=== PATIENT | male | born 1980 | race Caucasian/White ===

== ENCOUNTER 2021-06-04 18:05 | Emergency (ER) | payer OTHER ==
[2021-06-04 18:14] VITALS: BP 122/80; PULSE 65; TEMP 97.9; BMI 26.4
[2021-06-04] MEDS ORDERED: ACETAMINOPHEN 500 MG TABLET (FP) PO ONE (18:17)
[2021-06-04] MEDS ORDERED: ACETAMINOPHEN 500 MG TABLET (FP) ONE (18:20)
[2021-06-06 14:08] LABS: SARS-CoV-2 NAA Not Detected (Not Detected)
== END 2021-06-04 18:40 | disposition home or self-care (01) ==
LOC: FER 18:05
DX: J06.9 Acute upper respiratory infection, unspecified (principal)
CPT/HCPCS: 87804; 99283-25; C9803; U0003; U0005